=== PATIENT | female | born 1950 | race Caucasian/White ===

== ENCOUNTER → 2021-05-21 | Outpatient (CLI) | payer MEDICARE ==
[2015-02-27 15:15] VITALS: BP 89/39
[~2021-05-21] MED LIST: ANAS1TAB47 PO; ASCO-78 PO; ASCO500T3 PO; ATOR20TA PO; BLACK CHERRY PO; CELE200C PO; CETI10CA PO; DILT240C32 PO; EZET10TA20 PO; FLUT9.9S NS; GADOTERATE 7.5 MMOL/15ML VIAL. IVP ONE; GLUC100018 PO; Hydrocodone/Acetaminophen PO; LEVO125T5 PO; LEVO137T3 PO; LISI10TA16 PO; LOSA25TA54 PO; MELO15TA23 PO; MELO7.5T29 PO; MULT-460 PO; OMEG1CAP6 PO; OMEG500C3 PO; TRAM50TA PO; TRIA1TAB5 PO; WARF5TAB2 PO; [UNRECOGNIZED DRUG - CODE] PO
--- NOTE | 2021-05-21 15:13 | KCIC ---
MRI of the Brain without and with Contrast 05/21/2021 Clinical History: Double vision in the right eye.. Technique: Unenhanced T1-weighted sagittal and axial and FLAIR, T2-weighted, gradient echo and diffus ion-weighted axial images of the brain were obtained. After the intravenous administration of 24 cc o f Clariscan, enhanced T1-weighted axial and coronal images of the brain were obtained. Findings: There is generalized parenchymal atrophy. Patchy and several small scattered areas of incre ased signal intensity are seen within the periventricular and subcortical white matter of both cerebr al hemispheres on the FLAIR and T2-weighted images consistent with areas of minimal small vessel isch emic disease. No acute parenchymal abnormality is seen. No area of abnormal contrast enhancement is noted. No extra -axial fluid collection is seen. There is no MRI evidence of acute ischemia/infarction. The orbits ar e within normal limits. Mild mucosal thickening is seen scattered throughout the ethmoid air cells bilaterally. There is a mi nimal right mastoid effusion. A small left mastoid effusion is seen. Normal flow voids are seen withi n the major vascular structures surrounding the brain parenchyma. IMPRESSION: No acute parenchymal abnormality is seen. Electronically signed by: Nic Daily MD (05/21/2021 3:10 PM) [id number]
== END ==
LOC: KCIC MRI 12:20
PROVIDERS: ATTEND Family Medicine
DX: G31.9 Degenerative disease of nervous system, unspecified (principal); G93.89 Other specified disorders of brain; H53.2 Diplopia
CPT/HCPCS: 70553; A9575

== ENCOUNTER → 2021-06-16 | Outpatient (CLI) | payer MEDICARE ==
[2015-02-27 15:15] VITALS: BP 89/39
[~2021-06-16] MED LIST changes: -GADOTERATE 7.5 MMOL/15ML VIAL. IVP ONE
--- NOTE | 2021-06-17 08:33 | KCIC ---
Study: CT of the Chest without IV contrast 06/16/2021 Comparison: Report of chest CT dated 10/16/2009 Clinical Indication: Myasthenia gravis, evaluate findings Technique: Contiguous axial images are obtained from the thoracic inlet to the apex of the diaphragm. Sagittal and coronal reformations are evaluated. Dose Reduction: One or more of the following individualized dose reduction techniques were utilized f or this examination: 1. Automated exposure control, 2. Adjustment of the mA and/or kV according to p atient size, 3. Use of iterative reconstruction technique FINDINGS: Evaluation of the mediastinal, vascular, soft tissue, and upper abdominal solid parenchyma structures is limited by lack of IV contrast. Lungs: 1.8 x 1.0 x 0.9 cm multilobulated nodule in the right middle lobe. This was reported as measur ing 1.2 x 1.0 x 1.2 cm on 10/16/2009. Central Airways: Widely patent. Lymph Nodes: No suspicious hilar, mediastinal or axillary adenopathy. There is prominent fat in the a nterior mediastinum without enlarged soft tissue nodule or mass. Pulmonary Vasculature: Grossly unremarkable Heart: Normal in size and grossly unremarkable. No coronary artery calcifications. Systemic Vasculature: No significant atherosclerosis. Esophageal: Normal in course and caliber. Upper Abdomen: No gross morphologic abnormalities of the visualized organs. Bones: No gross osteoblastic or osteolytic bone lesions. Soft Tissues: Grossly unremarkable IMPRESSION: 1. No enlarged thymus, thymic mass or anterior mediastinal mass. 2. Multilobulated nodule in the right middle lobe has slightly increased in some dimensions measuring up to 1.8 cm. Without direct comparison of images, it is difficult to determine if this has signific antly changed from the remote prior where it measured up to 1.2 cm. Electronically signed by: Josef Farias MD (06/17/2021 8:30 AM) [id number]
== END ==
LOC: KCIC CT 12:22
PROVIDERS: ATTEND Nurse Practitioner Family
DX: R91.1 Solitary pulmonary nodule (principal); G70.00 Myasthenia gravis without (acute) exacerbation
CPT/HCPCS: 71250